=== PATIENT | male | born 1965 | race Caucasian/White ===

== ENCOUNTER 2018-08-13 01:01 | Emergency (ER) | END 2018-08-13 03:19 | disposition home or self-care (01) ==

== ENCOUNTER 2018-09-07 20:40 | Emergency (ER) | END 2018-09-08 01:55 | disposition home or self-care (01) ==

== ENCOUNTER 2018-11-25 06:39 | Day surgery (SDC) | payer OTHER ==
[~2018-11-25] VITALS: Ht 182.9 cm; Wt 77.5 kg
[~2018-11-25 06:39] MED LIST: AMOX500C2 PO; IBUP-1542 PO; MAG-19 PO; RANI150T35 PO
[2018-11-25 08:28] VITALS: BP 151/81; RESP 18
[2018-11-25] MEDS ORDERED: PROPOFOL 60 ML ONE (08:28)
[2018-11-25] MEDS ORDERED: BP MED (08:30)
--- NOTE | 2018-11-25 08:31 | PREAC ---
Date/Time of Note Date/Time of Note DATE: 11/25/18 TIME: 08:30 Anesthesia Eval and Record Evaluation Time Pre-Procedure Interview DATE: 11/25/18 TIME: 08:30 Age 53 Sex male NPO: 8 hrs Preoperative diagnosis dysphagia Planned procedure EGD,colonoscopy Past Medical History Past Medical History: Includes Cardio: HTN GI: GERD Surgery & Anesthesia Issues No known issue Meds Anticoagulation: No Beta Mary within 24 hr: No Reason Beta Mary not given: Pt. not on B-Mary Reported Medications [Bp Med] No Conflict Check 11/25/18 Discontinued Scripts Magaldrate/Simethicone* (Mylanta*) 355 Ml Susp, 30 ML PO QID PRN for GASTROINTESTINAL UPSET, #1 BOTTLE Prov:ODETTE ANGUIANO NP 09/08/18 Ranitidine Hcl* (Zantac*) 150 Mg Tablet, 150 MG PO BID PRN for EPIGASTRIC PAIN, #30 TAB Prov:ODETTE ANGUIANO NP 09/08/18 Ibuprofen* (Motrin*) 600 Mg Tab, 600 MG PO Q6H PRN for PAIN AND OR ELEVATED TEMP, #30 TAB Prov:ODETTE ANGUIANO NP 08/13/18 Amoxicillin* (Amoxicillin*) 500 Mg Cap, 500 MG PO TID for 10 Days, CAP Prov:ODETTE ANGUIANO NP 08/13/18 Meds reviewed: Yes Allergies Coded Allergies: No Known Allergy (Unverified , 08/13/18) Allergies Reviewed: Yes Labs/Studies Labs Reviewed: Reviewed by anesthesiologist test: N/A Studies: ECG, CXR Pre-procedure Exam Last vitals Vital Signs Date Temp Pulse Resp B/P (MAP) Pulse Ox O2 O2 Flow FiO2 Time Delivery Rate 11/25/18 99.0 18 151/81 97 Room Air 08:28 (104) Airway: Adequate mouth opening, Adequate thyromental dist Mallampati: Mallampati III Teeth: Normal Lung: Normal Heart: Normal ASA Physical Status ASA physical status: 2 Emergency: None Planned Anesthetic General/MAC: MAC Planned Pain Management Parenteral pain med Pre-operative Attestations Prior to commencing anesthesia and surgery, the patient was re-evaluated, there was verification of: *The patient's identity *The results of appropriate recent lab work and preoperative vital signs *The above evaluation not changing prior to induction *Anesthetic plan, risk benefits, alternative and complications discussed with patient/family; questions answered; patient/family understands, accepts and wishes to proceed. JOSUE ALSTON MD Nov 25, 2018 08:31
[2018-11-25 09:55] VITALS: BP 112/73; PULSE 72; RESP 18
--- NOTE | 2018-11-25 12:09 | PAC ---
Date/Time of Note Date/Time of Note DATE: 11/25/18 TIME: 12:08 Post-Anesthesia Notes Post-Anesthesia Note Last documented vital signs Vital Signs Date Temp Pulse Resp B/P (MAP) Pulse Ox O2 O2 Flow FiO2 Time Delivery Rate 11/25/18 72 18 112/73 96 Room Air 09:55 (86) 11/25/18 99.0 08:28 Activity: WNL Respiratory function: WNL Cardiovascular function: WNL Mental status: Baseline Pain reasonably controlled: Yes Hydration appropriate: Yes Nausea/Vomiting absent: Yes JOSUE ALSTON MD Nov 25, 2018 12:09
== END 2018-11-25 12:24 | disposition home or self-care (01) ==
LOC: GIL 06:39
PROVIDERS: ATTEND Internal Medicine Gastroenterology
DX: Z12.11 Encounter for screening for malignant neoplasm of colon (principal); K29.50 Unspecified chronic gastritis without bleeding; K64.8 Other hemorrhoids; I10 Essential (primary) hypertension
CPT/HCPCS: 84703; 88305; 88312